=== PATIENT | male | born 1990 | race Caucasian/White ===

== ENCOUNTER 2018-08-28 19:04 | Emergency (ER) | payer OTHER, MEDICAID ==
--- NOTE | 2018-08-28 19:32 | ERPHSYRPT ---
- History of Present Illness Time Seen by Provider: 08/28/18 19:25 Source: patient, EMS Patient Subjective Stated Complaint: Seizures Triage Nursing Assessment: Patient brought into ED per EMS and transferred to bed with assist of 2. Patient is currently incarcerated in [facility] where he had a seizure about 1850 lasting 3 minutes. Long-Term staff states seizure was a tonic clonic seizure. Patient was drooling. Patient was not incontinent of urine. Patient's skin pink, cool and diaphorectic. Patient states he was lying down in the bunk during seizure. Patient states he hit his chin on the side of bunk. Patient's lungs clear a/p soni. Heart tones audible. Pupuls PERRl. Patient complains of occasional chest pain 11/04. Patient does have hx of seizures. Physician History: 28 y/o white male, who is incarcerated in the [facility], presents with seizure episode. pt brought into ED by ems. pt has h/o seizures. pt is only on keppra. pt has had increased number of episodes of seizures in the last month. pt was not doing anything in particular when his seizure began. pt denies head injury. pt was not postictal and did not soil his pants. Timing/Duration: today Severity: moderate Character of Deficits: none Deficits: no difficulties Baseline/Normal Cognition: alert oriented x 3 Current Cognition: alert oriented x 3 Baseline Gait: walks w/o assistance Associated Symptoms: seizures Allergies/Adverse Reactions: No Known Drug Allergies Allergy (Unverified 08/28/18 19:07) Hx Tetanus, Diphtheria Vaccination/Date Given: No Hx Influenza Vaccination/Date Given: No Hx Pneumococcal Vaccination/Date Given: No Immunizations Up to Date: Yes - Review of Systems Constitutional: No Symptoms Eyes: No Symptoms Ears, Nose, & Throat: No Symptoms Respiratory: No Symptoms Cardiac: No Symptoms Abdominal/Gastrointestinal: No Symptoms Genitourinary Symptoms: No Symptoms Musculoskeletal: No Symptoms Skin: No Symptoms Neurological: Seizure Psychological: No Symptoms Endocrine: No Symptoms Hematologic/Lymphatic: No Symptoms Immunological/Allergic: No Symptoms All Other Systems: Reviewed and Negative - Past Medical History Pertinent Past Medical History: Yes Neurological History: Seizures, Stroke ENT History: No Pertinent History Cardiac History: Hypertension Respiratory History: COPD Endocrine Medical History: No Pertinent History Musculoskeletal History: No Pertinent History History: No Pertinent History Psycho-Social History: Anxiety, Bipolar, Depression Male Reproductive Disorders: No Pertinent History - Past Surgical History Past Surgical History: No Neuro Surgical History: No Pertinent History Cardiac: No Pertinent History Respiratory: No Pertinent History Gastrointestinal: No Pertinent History Genitourinary: No Pertinent History Musculoskeletal: No Pertinent History Male Surgical History: No Pertinent History - Social History Smoking Status: Never smoker Exposure to second hand smoke: No Drug Use: marijuana Patient Lives Alone: No (Incarated at [facility]) - Nursing Vital Signs Nursing Vital Signs: Initial Vital Signs Pulse Rate 107 H 08/28/18 19:08 Respiratory Rate 18 08/28/18 19:08 Blood Pressure 122/83 08/28/18 19:08 O2 Sat by Pulse Oximetry 97 08/28/18 19:08 Pain Scale Pain Intensity 8 - Jf Coma Scale Best Eye Response (Sunol): (4) open spontaneously Best Verbal Response (Sunol): (5) oriented Best Motor Response (Jf): (6) obeys commands Sunol Total: 15 - Physical Exam General Appearance: no apparent distress, alert, anxiety Eye Exam: bilateral eye: normal inspection, PERRL, EOMI Ears, Nose, Throat Exam: normal ENT inspection, moist mucous membranes Neck Exam: normal inspection, non-tender, supple, full range of motion Respiratory: normal breath sounds Cardiovascular: regular rate/rhythm, normal heart sounds, normal peripheral pulses Gastrointestinal: soft, normal bowel sounds, No tenderness, No guarding Rectal Exam: not done Back Exam: normal inspection, normal range of motion, No CVA tenderness, No vertebral tenderness Extremity Exam: normal inspection, normal range of motion, pelvis stable Mental Status: alert, oriented x 3, 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 Exam: normal hearing, normal speech, PERRL, tongue midline Skin Exam: normal color, warm, dry SpO2 Interpretation: normal SpO2: 97 O2 Delivery: Room Air - Course Nursing assessment & vital signs reviewed: Yes EKG Interpreted by Me: RATE ([id number]), Sinus Rhythm, NORMAL AXIS, NORMAL INTERVALS, NORMAL QRS Ordered Tests: Active Orders 24 hr Category Date Time Status Art Department Head STAT Care 08/28/18 19:33 Active Clean Catch Urine Specimen STAT Care 08/28/18 19:32 Active IV Insertion STAT Care 08/28/18 19:32 Active HEAD WITHOUT CONTRAST [CT] Stat Exams 08/28/18 19:33 Taken ACETAMINOPHEN Stat Lab 08/28/18 20:17 Completed ETHYL ALCOHOL Stat Lab 08/28/18 20:17 Completed SALICYLATE Stat Lab 08/28/18 20:17 Completed UA W/RFX UR CULTURE Stat Lab 08/28/18 19:40 Completed Urine Triage Profile Stat Lab 08/28/18 19:40 Completed Medication Summary Discontinued Medications Generic Name Dose Route Start Last Admin Trade Name Lori PRN Reason Stop Dose Admin Lorazepam 1 mg 08/28/18 19:33 08/28/18 20:10 Ativan 2 Mg/1 Ml Vial IV 08/28/18 19:34 1 mg STAT ONE Administration Lorazepam Confirm 08/28/18 20:09 Ativan 2 Mg/1 Ml Vial Administered 08/28/18 20:10 Dose 2 mg .ROUTE .STK-MED ONE Lab/Rad Data: Laboratory Results 08/28/18 08/28/18 08/28/18 Range/Units 20:17 19:40 19:40 Urine Color YELLOW (YELLOW) Urine Appearance SLIGHTLY CLOUDY (CLEAR) Urine pH 8.0 (5-6) Ur Specific [place] 1.011 (1.005-1.025) Urine Protein NEGATIVE (Negative) Urine Ketones NEGATIVE (NEGATIVE) Urine Blood NEGATIVE (0-5) Jayden/ul Urine Nitrite NEGATIVE (NEGATIVE) Urine Bilirubin NEGATIVE (NEGATIVE) Urine Urobilinogen NEGATIVE (0-1) mg/dL Ur Leukocyte Esterase NEGATIVE (NEGATIVE) Urine WBC (Auto) 0-2 (0-5) /HPF Urine RBC (Auto) 0-2 (0-2) /HPF Urine Bacteria (Auto) RARE (NEGATIVE) /HPF Unidentified Crystals 25-50 (NEGATIVE) /HPF Urine Mucus (Auto) SLIGHT (NEGATIVE) /HPF Urine Culture Reflexed NO (NO) Urine Glucose NEGATIVE (NEGATIVE) mg/dL Salicylates < 1.0 L (2-20) mg/dL Urine Opiates Level NEGATIVE (NEGATIVE) Ur Methadone NEGATIVE (NEGATIVE) Acetaminophen < 10 L (10-30) ug/ml Urine Barbiturates NEGATIVE (NEGATIVE) Ur Phencyclidine (PCP) NEGATIVE (NEGATIVE) Urine Amphetamine NEGATIVE (NEGATIVE) U Benzodiazepine Level POSITIVE (NEGATIVE) Urine Cocaine NEGATIVE (NEGATIVE) Urine Marijuana (THC) POSITIVE (NEGATIVE) Ethyl Alcohol < 10 (0-10) mg/dL - Progress Progress: improved, re-examined Progress Note: 08/28/18 20:32 ct head- no acute intracranial process. Counseled pt/family regarding: lab results, diagnosis, need for follow-up, rad results - Departure Departure Disposition: Long-Term/Senior Living Clinical Impression: Seizure Condition: Stable Critical Care Time: No Referrals: DOCTOR,NO FAMILY [Primary Care Provider] - Additional Instructions: follow up with your neurologist. take your medications as prescribed.
[2018-08-28] MEDS ORDERED: Ativan 2 MG/1 ML VIAL IV ONE (19:33)
[2018-08-28] MEDS ORDERED: Ativan 2 MG/1 ML VIAL ONE (20:09)
[2018-08-28 20:28] LABS: Appearance SLIGHTLY CLOUDY (CLEAR); Bacteria RARE /HPF (NEGATIVE); Bilirubin NEGATIVE (NEGATIVE); Blood NEGATIVE Ery/ul (0-5); Crystals Unidentified 25-50 /HPF (NEGATIVE); Glucose NEGATIVE (NEGATIVE); Ketones NEGATIVE (NEGATIVE); Leukocyte Esterase NEGATIVE (NEGATIVE); Mucus SLIGHT /HPF (NEGATIVE); Nitrite NEGATIVE (NEGATIVE); Protein,Urine Dip NEGATIVE (Negative); RBC 0-2 /HPF (0-2); Specific Gravity 1.011 (1.005-1.025); Urobilinogen NEGATIVE mg/dL (0-1); WBC 0-2 /HPF (0-5)
[2018-08-28 20:39] LABS: Amphetamine,Urine NEGATIVE (NEGATIVE); Barbiturate,Urine NEGATIVE (NEGATIVE); Benzodiazepine,Urine POSITIVE (NEGATIVE); Cocaine,Urine NEGATIVE (NEGATIVE); Methadone,Urine NEGATIVE (NEGATIVE); Opiate,Urine NEGATIVE (NEGATIVE); PCP,Urine NEGATIVE (NEGATIVE); THC,Urine POSITIVE (NEGATIVE)
[2018-08-28 20:42] LABS: ACETAMINOPHEN < 10 ug/ml (10-30); ETHYL ALCOHOL < 10 mg/dL (0-10); SALICYLATE < 1.0 mg/dL (2-20)
[2018-08-28 22:07] VITALS: BP 123/89; PULSE 95; O2SAT 99
--- NOTE | 2018-08-29 08:45 | XRAY ---
Indication: Seizure. Posterior head injury. Multiple contiguous axial images obtained through the head without contrast. Comparison: None Normal appearing brain parenchyma, ventricles, and bony calvarium. The visualized paranasal sinuses and mastoid air cells are clear. Impression: Normal CT head without contrast exam. CTDI 48.60
== END 2018-08-28 22:15 | disposition home or self-care (01) ==
LOC: ED 19:04 → EEVIPCON 19:04 → ED 22:15
DX: R56.9 Unspecified convulsions (principal); Z79.899 Other long term (current) drug therapy
CPT/HCPCS: 36415; 70450; 80307; 81001; 93041; 96374; 99284; G0481; J2060; G0480